=== PATIENT | female | born 1945 | race Caucasian/White ===

== ENCOUNTER 2023-10-07 04:08 | Inpatient (IN) | payer MEDICARE ==
[~2023-10-07] VITALS: Ht 170.2 cm; Wt 110.0 kg
[2023-10-07] VITALS (51 sets, daily range): BP systolic 96–178; BP diastolic 60–117
[~2023-10-07 04:08] MED LIST: Norco 5-325 Ta1 EACH PO
--- NOTE | 2023-10-07 05:00 | NUR ---
ADMISSION DIRECT ADMIT FROM [facility]. REPORT RECIEVED FROM [facility] IN [facility], AND PARAMEDICS UPON ARRIVAL. PER REPORT PATIENT TESTED POS FOR COVID 1 MONTH AGO WELL IN ER PRIOR TO ARRIVAL TO [facility]. PATIENT PLACED IN ISOLATION, COVID SWAB COLLECTED. LAB AT BEDSIDE DRAWING RAINBOW PER PHONE ORDERS FROM DR. REYNOLDS. PATIENT IS ALERT, ANSWERING QUESTIONS APPROPRIATLEY. PATIENT HAS Hx CVA "25 YEARS AGO", SOME GARBLED SPEECH BUT OTHERWISE SPEAKING APPROPRIATELY. PER CONCESSION ATTENDANT REPORT PATIENT HAS RIDE SIDED DEFECITS. PATIENT ABLE TO MOVE ALL EXTREMITIES BUT IS GENERALLY WEAK D/T CURRENT STATE. PATIENT HYPERTENSIVE, TACHYCARDIC AND TACHYPNEIC ON ARRIVAL. PATIENT WITH NGT IN PLACE, PLACED BY [facility], DARK LIQUID IN TUBE. PATIENT HOOKED UP TO LIS PER TELEPHONE ORDERS FROM HOSPITALIST. PATIENT ON 3L NC WITH SPO2 >95%, PATIENT WEARS 2L NC BASELINE. LUNG SOUNDS WITH FINE WHEEZES AND COARSE T/O. PATIENT STATES SHE HAD A FALL RECENTLY AT HOME AND THAT SHE USES A WALKER/SCOOTER BASELINE, SOME BRUISING IN DIFFERENT STAGES OF HEALING NOTED. NO OTHER OPEN WOUNDS NOTED. ATTENDS IN PLACE, C/D/I. AWAITING FURTHER ORDER FROM HOSPITALIST AND GENERAL SURGEON. NPO AT THIS TIME. ORIENTED TO ROOM AND CALL LIGHT SYSTEM.
[2023-10-07 05:26] LABS: Hematocrit 36.4 % (33.0-51.0); Hemoglobin 12.1 g/dL (11.5-16.0); Mean Corpuscular HGB 30.8 pg (26.0-34.0); Mean Corpuscular HGB Conc 33.2 g/dL (31.5-36.5); Mean Corpuscular Volume 93 fL (80-100); Mean Platelet Volume 10.6 fL (9.1-12.4); Platelet Count 297 K/mm3 (150-400); RDW Coefficient Variation 15.1 % (11.7-14.2); RDW Standard Deviation 51.5 fL (35.1-46.3); Red Blood Cell Count 3.93 M/mm3 (3.80-5.20); White Blood Cell Count 18.49 K/mm3 (4.00-11.30)
[2023-10-07 05:42] LABS: Base Excess Venous 2.2 mmol/L; International Normalized Ratio 1.24; PCO2 Venous 44.6 mmHg (38-42); Prothrombin Time Results 12.9 Sec (9.7-11.5); pH Blood Venous 7.39 (7.34-7.37)
[2023-10-07 05:44] LABS: BAND PERCENT MAN 23 % (0-8); BASOPHILS PERCENT MAN 0 % (0-2); EOSINOPHILS PERCENT MAN 0 % (0-6); LYMPHOCYTES ABSOLUTE MAN 1.29 K/mm3 (0.84-5.20); LYMPHOCYTES PERCENT MAN 7 % (21-46); MONOCYTES ABSOLUTE MAN 1.84 K/mm3 (0.16-1.47); MONOCYTES PERCENT MAN 10 % (4-13); NEUTROPHILS ABSOLUTE MAN 15.34 K/mm3 (1.96-9.15); SEG NEUTROPHILS PERCENT MAN 60 % (41-73); TOTAL CELLS COUNTED 100
[2023-10-07 05:54] LABS: Magnesium, Blood 2.1 mg/dL (1.6-2.4); Thyroid Stimulating Hormone 1.33 uIU/mL (0.360-4.800)
[2023-10-07 05:55] LABS: Albumin, Blood 2.8 g/dL (3.4-5.0); Albumin/Globulin Ratio 0.8 (0.8-1.8); Bun/Creatinine Ratio 30.8 (12.0-20.0); Calcium, Blood 9.1 mg/dL (8.5-10.1); Creatinine, Blood 0.91 mg/dL (0.40-1.00); Globulin, Blood 3.7 g/dL (2.2-4.0); Phosphorus, Blood 3.4 mg/dL (2.5-4.9); Potassium, Blood 3.8 mmol/L (3.5-5.5); Total Protein, Blood 6.5 g/dL (6.4-8.2)
[2023-10-07 07:05] LABS: Adenovirus Not Detected (NOT DETECT); Bordetella pertussis Not Detected (NOT DETECT); Chlamydophila pneumoniae Not Detected (NOT DETECT); Coronavirus 229E Not Detected (NOT DETECT); Coronavirus HKU1 Not Detected (NOT DETECT); Coronavirus NL63 Not Detected (NOT DETECT); Coronavirus OC43 Not Detected (NOT DETECT); Human Metapneumovirus Not Detected (NOT DETECT); Human Rhinovirus/Enterovirus Not Detected (NOT DETECT); Influenza A/2009-H1 Not Detected (NOT DETECT); Influenza A/H1 Not Detected (NOT DETECT); Influenza A/H3 Not Detected (NOT DETECT); Influenza B Not Detected (NOT DETECT); Mycoplasma pneumoniae Not Detected (NOT DETECT); Parainfluenza Virus 1 Not Detected (NOT DETECT); Parainfluenza Virus 2 Not Detected (NOT DETECT); Parainfluenza Virus 3 Not Detected (NOT DETECT); Parainfluenza Virus 4 Not Detected (NOT DETECT); Respiratory Syncytial Virus Not Detected (NOT DETECT); SARS-Cov-2 (COVID-19), BioFire Not Detected (NOT DETECT)
--- NOTE | 2023-10-07 08:00 | NUR ---
Received report from Noc RN. Dr Pereira leaving room and he stated will be going to surgery. Anesthesia enteing room and asked for breathing treatment and Nelia RT came to do it. They also requested better IV access and placed 18/10 Powerglide in SHELIA and patient tolerated well. She has 22ga RW and 20ga RLFA. Her speech is garbled but when speaking slow is mostly understandable. She is better at yes no questions. Her breathing is coarse and wheezy and states SOB with any movement. Called and let him know she was going to surgery
--- NOTE | 2023-10-07 10:45 | NUR ---
ASSUMPTION OF CARE PT ARRIVED TO ICU VIA ICU BED FROM OR. BEDSIDE REPORT RECEIVED FROM OR NURSE. PT INTUBATED, NO SEDATION, NOT RESPONDING TO STIMULI. REMI RT SETTING UP VENTILATOR. LS COARSE. OGT SETUP TO LIS WITH BROWN SECRETIONS. ABDOMINAL INCISION WITH KAMLESH IN PLACE, DRESSING C/D. HOLGUIN CATH PATENT, DRAINING MAGNUS URINE. POWERGLIDE TO SHELIA WITH 1L LR ALMOST COMPLETE.
[2023-10-07 11:02] LABS: Hematocrit 35.7 % (33.0-51.0); Hemoglobin 11.7 g/dL (11.5-16.0); Mean Corpuscular HGB 30.5 pg (26.0-34.0); Mean Corpuscular HGB Conc 32.8 g/dL (31.5-36.5); Mean Corpuscular Volume 93 fL (80-100); Mean Platelet Volume 10.4 fL (9.1-12.4); Platelet Count 292 K/mm3 (150-400); RDW Standard Deviation 51.1 fL (35.1-46.3); Red Blood Cell Count 3.83 M/mm3 (3.80-5.20); White Blood Cell Count 13.53 K/mm3 (4.00-11.30)
[2023-10-07 11:18] LABS: Albumin, Blood 2.4 g/dL (3.4-5.0); Albumin/Globulin Ratio 0.7 (0.8-1.8); Bilirubin, Total 1.1 mg/dL (0.1-1.0); Bun/Creatinine Ratio 28.2 (12.0-20.0); Calcium, Blood 8.8 mg/dL (8.5-10.1); Creatinine, Blood 1.03 mg/dL (0.40-1.00); Globulin, Blood 3.6 g/dL (2.2-4.0); Phosphorus, Blood 4.3 mg/dL (2.5-4.9); Potassium, Blood 3.9 mmol/L (3.5-5.5)
[2023-10-07 11:27] LABS: BAND PERCENT MAN 11 % (0-8); BASOPHILS PERCENT MAN 0 % (0-2); EOSINOPHILS PERCENT MAN 0 % (0-6); LYMPHOCYTES ABSOLUTE MAN 1.21 K/mm3 (0.84-5.20); LYMPHOCYTES PERCENT MAN 9 % (21-46); MONOCYTES ABSOLUTE MAN 1.21 K/mm3 (0.16-1.47); MONOCYTES PERCENT MAN 9 % (4-13); NEUTROPHILS ABSOLUTE MAN 11.09 K/mm3 (1.96-9.15); SEG NEUTROPHILS PERCENT MAN 71 % (41-73); TOTAL CELLS COUNTED 100
--- NOTE | 2023-10-07 18:56 | NUR ---
SHIFT SUMMARY PT EXTUBATED THIS AFTERNOON TO 4L VIA NC c SATS >90%. ALERT AND ORIENTED TO PERSON, PLACE, AND EVENT. ABLE TO STATE S/O NAME WITH SLURRED SPEECH, NORMAL AT BASELINE, FOLLOWING COMMANDS. PT DENIES ABDOMINAL PAIN, KAMLESH TO ABD WITHOUT BLEEDING. NGT TO LIS WITH BROWN OUTPUT. HOLGUIN CATH PATENT, DRAINING YELLOW URINE.
--- NOTE | 2023-10-07 21:10 | NUR ---
ASSUMED CARE AT 1900 PATIENT IS ALERT AND ORIENTED X SELF AND FOLLOWING COMMANDS, ABLE TO STATE YEAR BUT NOR MONTH OR WHERE SHE IS. NEEDS CONSTANT REDIRECTION. PULLED NG TUBE OUT AT START OF SHIFT, STATED SHE WOULD PULL IT OUT AGAIN IF REPLACED. DR. CASON NOTIFIED, OK TO LEAVE OUT FOR NOW, REPLACE IF PATIENT BECOMES NAUSEOUS. 02 SATS 94% ON 4L VIA NC, SOME EXP WHEEZE, RT NOTIFIED AND PATIENT RECIEVING BREATHING TREATMENT. WEAK COUGH AND NO SPUTUM AT THIS TIME. HR A.FIB 110-120s. HUMAIRA STABLE TO HYPERTENSIVE, WILL MEDICATED PER EMAR PRN. HOLGUIN PATENT AND DRAINING TO GRAVITY. MIDLINE DRESSING WITH KAMLESH C/D/I. PATIENT REPOSITIONED AND ORAL CARE DONE. CALL LIGHT IN REACH
[2023-10-07 21:26] LABS: Source, Urine Foley catheter
[2023-10-07 21:54] LABS: Bilirubin, Urine Neg (Neg); Blood, Urine 5+ (Neg); Glucose Qualitative, Urine Neg (Neg); Ketones, Urine Neg (Neg); Leukocyte Esterase, Urine Neg (Neg); Nitrite, Urine Neg (Neg); Protein, Urine 3+ (Neg); Urobilinogen, Urine 1+ (Normal)
[2023-10-07 22:04] LABS: Appearance, Urine Clear (Clear); Color, Urine Yellow (P-Yellow)
[2023-10-07 22:05] LABS: Bacteria Few /hpf; Squamous Epithelial Cells Not Seen /hpf (Few); White Blood Cells, Urine 0-2 /hpf (0-5)
[2023-10-08] VITALS (30 sets, daily range): BP systolic 130–180; BP diastolic 76–111
--- NOTE | 2023-10-08 01:44 | NUR ---
PATIENT STATED SHE WAS STARTING TO FEEL NAUSEOUS NG REPLACED, BROWN BILE FROM NG TUBE, PLACED TO LIS.
[2023-10-08 03:55] LABS: Hematocrit 34.7 % (33.0-51.0); Hemoglobin 11.4 g/dL (11.5-16.0); Mean Corpuscular HGB 30.2 pg (26.0-34.0); Mean Corpuscular HGB Conc 32.9 g/dL (31.5-36.5); Mean Corpuscular Volume 92 fL (80-100); Mean Platelet Volume 10.7 fL (9.1-12.4); Platelet Count 291 K/mm3 (150-400); RDW Standard Deviation 50.3 fL (35.1-46.3); Red Blood Cell Count 3.77 M/mm3 (3.80-5.20); White Blood Cell Count 14.42 K/mm3 (4.00-11.30)
[2023-10-08 04:19] LABS: Albumin, Blood 2.3 g/dL (3.4-5.0); Albumin/Globulin Ratio 0.6 (0.8-1.8); Bilirubin, Total 0.7 mg/dL (0.1-1.0); Creatinine, Blood 1.03 mg/dL (0.40-1.00); Magnesium, Blood 2.3 mg/dL (1.6-2.4); Potassium, Blood 3.7 mmol/L (3.5-5.5); Total Protein, Blood 6.3 g/dL (6.4-8.2)
[2023-10-08 04:47] LABS: BAND PERCENT MAN 4 % (0-8); BASOPHILS PERCENT MAN 0 % (0-2); EOSINOPHILS PERCENT MAN 0 % (0-6); LYMPHOCYTES ABSOLUTE MAN 0.86 K/mm3 (0.84-5.20); LYMPHOCYTES PERCENT MAN 6 % (21-46); MONOCYTES ABSOLUTE MAN 0.72 K/mm3 (0.16-1.47); MONOCYTES PERCENT MAN 5 % (4-13); NEUTROPHILS ABSOLUTE MAN 12.83 K/mm3 (1.96-9.15); SEG NEUTROPHILS PERCENT MAN 85 % (41-73); TOTAL CELLS COUNTED 100
--- NOTE | 2023-10-08 06:15 | NUR ---
SHIFT SUMMARY PATIENT REMAINS ALERT AND ORIENTED X SELF, YEAR, AND FOLLOWS COMMANDS. UNABLE TO STATE MONTH AND WHERE SHE IS, NEEDS CONSTANT REDIRECTION. 02 SATS 95% ON 4L NC. DID WEAR BIPAP FOR APPROX 3-4 HOURS THROUGH THE NIGHT, WORK OF BREATHING AND RR HAD INCREASED. RR NOW 20s ON NC. HR A.FIB 110-120s. BP STABLE THROUGH THE NIGHT, DENIES CP/PRESSURE. HOLGUIN PATENT AND DRAINING MAGNUS URINE TO GRAVITY. NG REMAINS IN PLACE TO MACIEJ GUTIÉRREZ BILE. MIDLINE DRESSING WITH KAMLESH, C/D/I. MEDICATED FOR ABDOMINAL PAIN. REPOSITIONED Q2 HOURS. CALL LIGHT IN REACH.
--- NOTE | 2023-10-08 17:18 | NUR ---
SHIFT SUMMARY/TRANSFER TO SURGICAL PT HAS DONE WELL THIS SHIFT. PT HAS SLEPT OFF AND ON THROUGHOUT THE SHIFT. WHEN AWAKE PT IS ALERT WITH PERIODS OF FORGETFULNESS. PT SPEECH IS MUMBLED, BUT PT ANSWERS SIMPLE QUESTIONS APPROPRIATELY. PT TAKING SIPS OF WATER THIS SHIFT. NGT REMAINS IN PLACE TO LIS. OK FOR NGT TO BE DC'D PER DR KNIGHT THIS EVENING. PG TO SHELIA C/D/I. HOLGUIN REMAINS IN PLACE WITH YELLOW URINE OUTPUT NOTED. VITAL SIGNS STABLE, PT REMAINS ON 3L O2 NC. MIDLINE KAMLESH REMAINS C/D/I. REPORT CALLED TO SOAP INSPECTOR, ALL QUESTIONS ANSWERED. PT TO BE TAKEN TO ROOM 224 AT THIS TIME.
--- NOTE | 2023-10-08 18:26 | NUR ---
PATIENT A TRANSFER FROM ICU @ ABOUT 1730. NG TUBE IN PLACE, DR KNIGHT HAS ORDER PLACED TO DC NG. PATIENT RESTING AT THIS TIME. HOLGUIN IN PLACE AND SECURE TO LEG. DRAINING CLEAR YELLOW URINE TO GRAVITY. KAMLESH DRESSING ON MIDLINE INCISION, WNL AND COMPRESSED. BED ALARM IS ON FOR SAFETY. CALL LIGHT IN REACH OF PATIENT AND VSS. PATIENT IS AOX4 WITH SOME FORGETFULNESS. WILL REPORT TO NIGHT RN.
[2023-10-09 03:41] VITALS: BP 147/91
--- NOTE | 2023-10-09 04:32 | NUR ---
SHIFT SUMMARY POD 3 EX LAP, SMALL BOWEL RESECTION PT ABLE TO REST DURING THE NIGHT. PAIN MANAGED PER EMAR. ATTEMPTED TO REPOSTION PT, PT REFUSED. STATES IT HURTS HER BACK. KAMLESH DRESSING TO MIDLINE INCISION C/D/I AND COMPRESSED.PT OLERTING SMALL AMOUNTS OF WATER AND ICE. PT CALLING OUT WANTING MORE WATER AND ICE. PT EDUCATED ON HOW SHE CAN ONLY HAVE SMALL AMOUNTS AT TIMES. NG TUBE TO BE TAKEN OUT THIS MORNING. PT BECOMES MORE CONFUSED THE NIGHT GOES ON. NO OTHER CONCERN AT THIS TIME. CALL LIGHT WITHIN REACH
[2023-10-09 06:33] LABS: BASOPHILS ABSOLUTE AUTO 0.02 K/mm3 (0.00-0.23); BASOPHILS PERCENT AUTO 0 % (0-2); EOSINOPHILS ABSOLUTE AUTO 0.03 K/mm3 (0.00-0.68); EOSINOPHILS PERCENT AUTO 0 % (0-6); Hemoglobin 9.9 g/dL (11.5-16.0); IMMATURE GRAN ABSOLUTE AUTO 0.09 K/mm3 (0.00-0.10); IMMATURE GRAN PERCENT AUTO 1 % (0-1); LYMPHOCYTES ABSOLUTE AUTO 1.49 K/mm3 (0.84-5.20); LYMPHOCYTES PERCENT AUTO 11 % (21-46); MONOCYTES PERCENT AUTO 7 % (4-13); Mean Corpuscular HGB 30.3 pg (26.0-34.0); Mean Corpuscular HGB Conc 31.9 g/dL (31.5-36.5); Mean Corpuscular Volume 95 fL (80-100); Mean Platelet Volume 10.3 fL (9.1-12.4); NEUTROPHILS ABSOLUTE AUTO 11.17 K/mm3 (1.96-9.15); NEUTROPHILS PERCENT AUTO 82 % (41-73); NRBC ABSOLUTE 0.02 K/mm3 (0.00-0.02); NRBC Auto 0.1 /100 WBC (0.0-0.2); Platelet Count 299 K/mm3 (150-400); RDW Coefficient Variation 15.2 % (11.7-14.2); RDW Standard Deviation 52.8 fL (35.1-46.3); Red Blood Cell Count 3.27 M/mm3 (3.80-5.20)
[2023-10-09 06:52] LABS: Bun/Creatinine Ratio 33.3 (12.0-20.0); Calcium, Blood 8.9 mg/dL (8.5-10.1); Creatinine, Blood 0.87 mg/dL (0.40-1.00); Potassium, Blood 3.7 mmol/L (3.5-5.5)
[2023-10-09 07:35] VITALS: BP 158/90
--- NOTE | 2023-10-09 09:00 | NUR ---
PT PLEASANT ANXIOUS, A/O X3, BUT SOME OCC FORGETFULLNESS. STATES SOME PAIN IN ABD THIS AM. ICE PACK PER DR Rusty BRADFORD DRAIN IS CLEAN AND DRY, HOOKED TO KAMLESH VACUUM DRAIN. NO DRAINAGE SEEN. H/R IRREG, HX OF AFIB, PRESENTLY PER TELE AFIB WITH PVC'S 104-112. NO MURMUR NOTED. NO EDEMA NOTED. LUNGS CLEAR, RESP EASY, UNLABORED. ON 3L O2. BT X4 VOIDS HOLGUIN CATH YELLOW FLUID IN BAG. BED IN LOW POSITION, CALL LITE IN REACH. CALLS MULTIPLE TIMES, APPEARS NOT REMEMBERED JUST CALLED. REORIENTS EASILLY.
[2023-10-09 14:43] VITALS: BP 164/75
--- NOTE | 2023-10-09 14:51 | NUR ---
in. he to order meds.
[2023-10-09 16:31] VITALS: BP 155/91
--- NOTE | 2023-10-09 17:31 | NUR ---
PT PLEASANT TODAY. NO BLEEDING OR DISCHARGE NOTED AT ABD SITE. PAIN MANAGED WITH [facility]AIL PAIN MED. IN FROM [facility] TODAY. REFERRED TO CARE MANAGEMENT WHEN SPOUSE IN ROOM. PT WAS ABLE TO TRANSFER FROM BED TO CHAIR AND BACK TO BED LATER THIS AFT. NO NEW CONCERNS NOTED. BED IN LOW POSITION, CALL LITE IN REACH, CALLS APPROP
[2023-10-09 19:47] VITALS: BP 154/87
[2023-10-10 03:59] VITALS: BP 140/73
[2023-10-10 06:31] LABS: BASOPHILS ABSOLUTE AUTO 0.03 K/mm3 (0.00-0.23); BASOPHILS PERCENT AUTO 0 % (0-2); EOSINOPHILS ABSOLUTE AUTO 0.29 K/mm3 (0.00-0.68); EOSINOPHILS PERCENT AUTO 3 % (0-6); Hematocrit 30.8 % (33.0-51.0); Hemoglobin 9.6 g/dL (11.5-16.0); IMMATURE GRAN ABSOLUTE AUTO 0.21 K/mm3 (0.00-0.10); IMMATURE GRAN PERCENT AUTO 2 % (0-1); LYMPHOCYTES ABSOLUTE AUTO 2.14 K/mm3 (0.84-5.20); LYMPHOCYTES PERCENT AUTO 20 % (21-46); MONOCYTES ABSOLUTE AUTO 0.95 K/mm3 (0.16-1.47); MONOCYTES PERCENT AUTO 9 % (4-13); Mean Corpuscular HGB 29.6 pg (26.0-34.0); Mean Corpuscular HGB Conc 31.2 g/dL (31.5-36.5); Mean Corpuscular Volume 95 fL (80-100); Mean Platelet Volume 9.9 fL (9.1-12.4); NEUTROPHILS ABSOLUTE AUTO 7.35 K/mm3 (1.96-9.15); NEUTROPHILS PERCENT AUTO 67 % (41-73); NRBC ABSOLUTE 0.02 K/mm3 (0.00-0.02); NRBC Auto 0.2 /100 WBC (0.0-0.2); Platelet Count 285 K/mm3 (150-400); RDW Coefficient Variation 15.3 % (11.7-14.2); RDW Standard Deviation 53.1 fL (35.1-46.3); Red Blood Cell Count 3.24 M/mm3 (3.80-5.20); White Blood Cell Count 10.97 K/mm3 (4.00-11.30)
--- NOTE | 2023-10-10 06:35 | NUR ---
SHIFT SUMMARY PT IS POD#3 FOR A SMALL BOWEL RESECTION W/TIFFANY. PT DID WELL OVERNIGHT, RESTING FOR THE MAJORITY THROUGHOUT THE SHIFT. PT COMPLAINED OF SOME PAIN DURING THE NIGHT, BUT MOSTLY D/T HER BACK PAIN OR A HEADACHE. VITAL SIGNS HAVE BEEN STABLE WITH NO ACUTE EVENTS OCCURRING OVERNIGHT. BED IS IN LOWEST POSITION, CALL LIGHT IS WITHIN REACH.
[2023-10-10 07:18] LABS: Bun/Creatinine Ratio 29.1 (12.0-20.0); Calcium, Blood 8.8 mg/dL (8.5-10.1); Creatinine, Blood 0.79 mg/dL (0.40-1.00); Potassium, Blood 3.8 mmol/L (3.5-5.5)
[2023-10-10 07:20] VITALS: BP 134/77
[2023-10-10 15:09] VITALS: BP 150/81
--- NOTE | 2023-10-10 17:41 | NUR ---
SHIFT SUMMARY PT POD #3 FOR SMALL BOWEL RESECTION WITH LYSIS OF ADHESIONS. KAMLESH TO MIDLINE, CDI. PT WORKED WITH PT AND CAN STAND PIVOT WITH 2 ASSIST. PT Q2 TURN AND SOME WEAKNESS NOTED ON HER RIGHT SIDE, WHICH IS HER BASELINE. NO C/O ABD PAIN BUT HAS SOME PAIN IN HER R HIP AND C/O HEADACHE. VSS.
[2023-10-10 19:58] VITALS: BP 142/77
[2023-10-10 23:19] VITALS: BP 135/70
--- NOTE | 2023-10-10 23:41 | NUR ---
CHEST PAIN PT COMPLAINING OF CHEST PAIN THAT STARTED AROUND 2315. PT REPORTS THAT PAIN IS IN HER LEFT CHEST. RATES PAIN 8/10. VITALS OBTAINED, RESP ARE SLIGHLY LABORED BUT SATS WNL, BP AND HR STABLE. PER RN HYPERBARIC HR AFIB 74, PT HAS BEEN IN AFIB SINCE ADMISSION, AND HAS HX OF AFIB. PER RN HYPERBARIC PT HAD BRIEF EPISODES OF BRADYCARDIA, HR DROPPED DOWN TO THE TO 43, AND 48 WHILE RESTING, RN HYPERBARIC REPORTS THAT THE ESPISODES OF BRADYCARDIA STARTED AROUND 1600 TODAY 10/10/23. PT DOES NOT REPORT NAUSEA OR VOMITTING. SKIN IS WARM AND DRY. PT IS A LITTLE BIT CONFUSED, SPEECH IS NONSENSICAL AT TIMES. PT SHE IS ABLE TO TELL ME WHERE SHE IS, THE YEAR, AND PRESIDENT WHEN ASKED. MERNA CUNNINGHAM NP CALLED AND NOTIFIED THAT PT IS REPORTING CHEST PAIN, AND OF INCREASED CONFUSION. SERIAL TROPONIN'S ORDERED. NO ADDITIONAL ORDERS AT THIS TIME. CINDER DUMP CRANE OPERATORJAYLON CASTELLANOS ALSO AWARE OF CHEST PAIN.
--- NOTE | 2023-10-11 01:22 | NUR ---
CRITICAL TROPONIN CRITICAL TROPONIN RESULT CALLED TO THIS RN AT 0113. TROPONIN 261. MERGERS AND ACQUISITIONS ASSOCIATE JASMIN OWENS NOTIFIED OF LAB RESULT. DR. REYNOLDS CALLED AND NOTIFIED OF CRITICAL TROPONIN OF 261, AND OF PT PREVIOUS REPORTS OF CHEST PAIN. HE WAS ALSO NOTIFIED OF MY CONVERSATION WITH MERNA JEAN-BAPTISTE CHECK EXAMINER REGARDING PT CHEST PAIN, AND THE ORDERS I WAS GIVEN BY MERNA. PT DENIES CHEST PAIN AT THIS TIME. RESP E/U, SKIN WARM AND DRY. NO N/V. NO ACUTE CHANGES ON TELE. REPEAT TROPONIN TO BE PERFORMED AT 0200. HE STATES IF TROPONIN CONTINUES TO INCREASE WITH 0200 LABS TO ORDER A REPEAT LAB FOR 0500. IF THE 0200 RESULT DECREASES NO ADDITIONAL LABS ARE NEEDED. NO OTHER ORDERS GIVEN AT THIS TIME.
[2023-10-11 02:50] LABS: Bun/Creatinine Ratio 27.1 (12.0-20.0); Calcium, Blood 8.6 mg/dL (8.5-10.1); Creatinine, Blood 0.74 mg/dL (0.40-1.00); Potassium, Blood 3.1 mmol/L (3.5-5.5)
[2023-10-11 03:02] LABS: BASOPHILS ABSOLUTE AUTO 0.07 K/mm3 (0.00-0.23); BASOPHILS PERCENT AUTO 1 % (0-2); EOSINOPHILS ABSOLUTE AUTO 0.52 K/mm3 (0.00-0.68); EOSINOPHILS PERCENT AUTO 5 % (0-6); Hematocrit 33.1 % (33.0-51.0); Hemoglobin 10.4 g/dL (11.5-16.0); IMMATURE GRAN ABSOLUTE AUTO 0.55 K/mm3 (0.00-0.10); IMMATURE GRAN PERCENT AUTO 5 % (0-1); LYMPHOCYTES ABSOLUTE AUTO 2.76 K/mm3 (0.84-5.20); LYMPHOCYTES PERCENT AUTO 24 % (21-46); MONOCYTES ABSOLUTE AUTO 0.97 K/mm3 (0.16-1.47); MONOCYTES PERCENT AUTO 8 % (4-13); Mean Corpuscular HGB 30.4 pg (26.0-34.0); Mean Corpuscular HGB Conc 31.4 g/dL (31.5-36.5); Mean Corpuscular Volume 97 fL (80-100); Mean Platelet Volume 10.3 fL (9.1-12.4); NEUTROPHILS ABSOLUTE AUTO 6.79 K/mm3 (1.96-9.15); NEUTROPHILS PERCENT AUTO 58 % (41-73); Platelet Count 314 K/mm3 (150-400); RDW Coefficient Variation 15.5 % (11.7-14.2); RDW Standard Deviation 54.5 fL (35.1-46.3); Red Blood Cell Count 3.42 M/mm3 (3.80-5.20); White Blood Cell Count 11.66 K/mm3 (4.00-11.30)
[2023-10-11 03:47] VITALS: BP 132/61
--- NOTE | 2023-10-11 05:26 | NUR ---
SHIFT SUMMARY PT HAS SLEPT OFF AND ON. PT HAS PERIODS OF ANXIETY, PRESSES CALL LIGHT FREQUENTLY. A/OX4 ANSWERS THE QUESTIONS I ASKS APPROPRIATELY. HOWEVER, SPEECH IS NONSENSICAL AT TIMES, MAKES STATEMENTS THAT ARE DIFFICULT TO UNDERSTAND. PT REPORTED CHEST PAIN AROUND 2300 YESTERDAY NIGHT. CHEST PAIN ADRESSED WITH PROVIDERS. SERIAL TROPONIN'S ORDERED. TROPONIN'S ARE CRITICAL AND PROVIDER MADE AWARE. TROPONINS ARE TRENDING DOWN SLIGHLY THIS AM. PT REPORTED THAT CHEST PAIN HAD RESOLVED SHORTLY AFTER REPORTING AROUND 2300. VITALS ARE STABLE. RESP E/U. SKIN WARM AND DRY. PT HAD LARGE BM THIS SHIFT. MIDLINE INCISION DRESSING C/D/I. KAMLESH COMPRESSED. BED IN LOWEST POSITION, CALL LIGHT WITHIN REACH.
[2023-10-11 07:08] VITALS: BP 156/71
[2023-10-11 12:29] VITALS: BP 133/75
[2023-10-11 14:59] VITALS: BP 145/80
--- NOTE | 2023-10-11 18:37 | NUR ---
SHIFT SUMMARY POD4 EXP LAP SBRESECT TIFFANY, KAMLESH WNL. A&O3/FORGETFUL/PLEASANT & COOPERATIVE WITH CARE, ALINE REG DIET, INCONTINENT BOWEL/BLADDER: VOIDING/PUREWICK, BMs SOFT/ATTENDS ON, VSS/3L/TELE AFIB 60s, STAND PIVOT TRANSFER WITH FWW & 2 PP MAX ASSIST/UP TO CHAIR T/O SHIFT. DENIES PAIN/NEED FOR MED. WILL REPORT TO ONCOMING NOC RN.
[2023-10-11 19:35] VITALS: BP 152/75
[2023-10-12 02:46] VITALS: BP 143/80
[2023-10-12 06:24] LABS: Hematocrit 32.6 % (33.0-51.0); Hemoglobin 10.3 g/dL (11.5-16.0); Mean Corpuscular HGB 29.9 pg (26.0-34.0); Mean Corpuscular HGB Conc 31.6 g/dL (31.5-36.5); Mean Corpuscular Volume 95 fL (80-100); Mean Platelet Volume 9.7 fL (9.1-12.4); Platelet Count 315 K/mm3 (150-400); RDW Coefficient Variation 15.2 % (11.7-14.2); Red Blood Cell Count 3.44 M/mm3 (3.80-5.20)
--- NOTE | 2023-10-12 06:27 | NUR ---
SUMMARY- PT DENIES ABD DISCOMFORT. MIDLINE DRESSING IN C/D/I. KAMLESH IS WORKING WELL. PT CONTINUES TO HAVE A PUREWICK DEVICE THAT IS WORKING WELL. PT DID BECOME MORE CONFUSED THROUGHOUT THE NIGHT. PT WAS AWAKE FOR MOST OF SHIFT. PT IS NOW SLEEPING THIS AM. PT HAS BEEN DRINKING PO FLUIDS. CALL LIGHT IN REACH AND BED ALARM ON.
[2023-10-12 06:44] LABS: Bun/Creatinine Ratio 25.4 (12.0-20.0); Calcium, Blood 8.8 mg/dL (8.5-10.1); Creatinine, Blood 0.55 mg/dL (0.40-1.00); Potassium, Blood 3.5 mmol/L (3.5-5.5)
[2023-10-12 07:11] LABS: BASOPHILS PERCENT MAN 0 % (0-2); EOSINOPHILS ABSOLUTE MAN 0.36 K/mm3 (0.00-0.68); EOSINOPHILS PERCENT MAN 3 % (0-6); LYMPHOCYTES ABSOLUTE MAN 5.04 K/mm3 (0.84-5.20); LYMPHOCYTES PERCENT MAN 42 % (21-46); METAMYELOCYTE ABSOLUTE MAN 0.12 K/mm3 (0.00-0.00); METAMYELOCYTE PERCENT MAN 1 % (0-0); MONOCYTES ABSOLUTE MAN 0.84 K/mm3 (0.16-1.47); MONOCYTES PERCENT MAN 7 % (4-13); NEUTROPHILS ABSOLUTE MAN 5.64 K/mm3 (1.96-9.15); SEG NEUTROPHILS PERCENT MAN 47 % (41-73); TOTAL CELLS COUNTED 100
[2023-10-12 08:13] VITALS: BP 149/83
[2023-10-12 14:42] VITALS: BP 162/81
[2023-10-12 16:37] VITALS: BP 140/70
[2023-10-12 17:10] LABS: Base Excess Venous 10.3 mmol/L; Bicarbonate Venous 31.5 mmol/L (24.0-30.0); PCO2 Venous 60.2 mmHg (38-42); pH Blood Venous 7.38 (7.34-7.37)
--- NOTE | 2023-10-12 17:15 | NUR ---
TELEPHONE CALL TO DR HART R/T BLOOD GASES RESULTS HIGH. STATES TO MAKE SURE PT WEARS BIPAP.
--- NOTE | 2023-10-12 17:18 | NUR ---
PT REFUSING TO WEAR BIPAP. IS CURRENTLY WEARING 4LNC HUMIDIFIED WITH OXYGEN SATS >95% AND HEART RATE 65 BPM.
--- NOTE | 2023-10-12 17:47 | NUR ---
SHIFT SUMMARY POD5 SB RESECT, KAMLESH WNL/CDI. A&O3/SLEEPY TODAY BUT WAKES EASILY, REFUSING BIPAP/WEARING 4LNC HUMIDIFIED, BIOX ON O2 SATS >95%/HR CURRENTLY 65 BPM, TELE CURRENTLY AFIB 59-64BPM, ALINE PO REG DIET/MEDS WITH APPLESAUCE, VOIDING PUREWICK IN PLACE TO SUX, REPOSITIONED, PAIN MANAGED WITH TYLENOL. WILL REPORT TO ONCOMING NOC RN.
[2023-10-12 19:32] VITALS: BP 100/63
[2023-10-13 04:19] VITALS: BP 133/64
[2023-10-13 04:32] LABS: BASOPHILS ABSOLUTE AUTO 0.04 K/mm3 (0.00-0.23); BASOPHILS PERCENT AUTO 0 % (0-2); EOSINOPHILS ABSOLUTE AUTO 0.53 K/mm3 (0.00-0.68); EOSINOPHILS PERCENT AUTO 5 % (0-6); Hematocrit 33.5 % (33.0-51.0); Hemoglobin 10.4 g/dL (11.5-16.0); IMMATURE GRAN ABSOLUTE AUTO 0.55 K/mm3 (0.00-0.10); IMMATURE GRAN PERCENT AUTO 5 % (0-1); LYMPHOCYTES ABSOLUTE AUTO 2.99 K/mm3 (0.84-5.20); LYMPHOCYTES PERCENT AUTO 27 % (21-46); MONOCYTES ABSOLUTE AUTO 0.95 K/mm3 (0.16-1.47); MONOCYTES PERCENT AUTO 9 % (4-13); Mean Corpuscular Volume 97 fL (80-100); Mean Platelet Volume 9.9 fL (9.1-12.4); NEUTROPHILS ABSOLUTE AUTO 5.99 K/mm3 (1.96-9.15); NEUTROPHILS PERCENT AUTO 54 % (41-73); Platelet Count 326 K/mm3 (150-400); RDW Coefficient Variation 15.1 % (11.7-14.2); RDW Standard Deviation 51.9 fL (35.1-46.3); Red Blood Cell Count 3.47 M/mm3 (3.80-5.20); White Blood Cell Count 11.05 K/mm3 (4.00-11.30)
[2023-10-13 04:59] LABS: Bun/Creatinine Ratio 19.7 (12.0-20.0); Calcium, Blood 8.6 mg/dL (8.5-10.1); Creatinine, Blood 0.76 mg/dL (0.40-1.00); Potassium, Blood 3.6 mmol/L (3.5-5.5)
--- NOTE | 2023-10-13 05:32 | NUR ---
SUMMARY- PT HAD NO ISSUES WITH CONFUSION THIS SHIFT. PT HAS BEEN WATCHING TV FOR MOST OF SHIFT. PT HAS BEEN PUTTING OUT CLEAR LIGHT YELLOW URINE VIA [employer] DEVICE. NO TELE EVENTS REPORTED. PT REMAINS ON O2, REFUSES CPAP. PT DRINKING PO FLUIDS. DRESSING C/D/I. KAMLESH OPERATIONAL. PT REPOSITONED TOLERATED. BED ALARM ON FOR SAFETY.
[2023-10-13 07:21] VITALS: BP 121/60
[2023-10-13 14:30] VITALS: BP 104/47
--- NOTE | 2023-10-13 14:44 | NUR ---
ANSWERED CALL LIGHT AND ASKED FOR HOT TEA, LEMONADE, AND SOME CHEESE. CHECKED WITH NURSE TO ENSURE SHE COULD HAVE ALL AND GOT THOSE FOR HER. CURRENTLY WATCHING T.V. ENJOYING THOSE SNACKS AND HAS CALL LIGHT IN REACH.
--- NOTE | 2023-10-13 15:44 | NUR ---
ANSWERED CALL LIGHT AND SHE MENTIONED SHE FELT LIKE SHE WAS WET. WE CHECKED AND HER BRIEF AND UNDER JUAREZ PAD WAS WET. THE RESPIRATORY CARE TECHNICIAN AND I TOOK CARE OF IT. ADJUSTED HER IN BED AND HOOKED HER BACK UP TO HIS PULSE OX. SHE HAS THE CALL LIGHT IN REACH AND DOOR OPENED.
[2023-10-13 16:56] VITALS: BP 152/83
--- NOTE | 2023-10-13 16:59 | NUR ---
CHECKED IN ON PATIENT TO DO VITAL SIGNS AND SHE ASKED TO BE BOOSTED UP. SHE STATED HER BACK WAS HURTING SO WE BOOSTED HER AND PUT A PILLOW UNDER HER LEFT HIP. SHE ASKED FOR MORE TEA AND LEMONADE. LEFT HER CALL LIGHT IN REACH
--- NOTE | 2023-10-13 17:04 | NUR ---
CHECKED BACK IN WITH PATIENT TO SEE HOW HER BACK PAIN WAS THAT SHE STATED EARLIER HAVING. SHE SAID IT WAS BETTER AND I ASKED IF SHE'D LIKE ANYTHING FOR PAIN BUT SHE SAID IT WAS TOLERABLE. WE ELEVATED THE HEAD OF BED A LITTLE MORE AND SHE SAID SHE WAS IN A COMFORTABLE POSITION. HER CALL LIGHT AND BEDSIDE TABLE ARE WITHIN REACH.
--- NOTE | 2023-10-13 17:57 | NUR ---
SHIFT SUMMARY ROUNDED ON PT FREQUENLTY THROUGHOUT THE DAY AND SHE WAS PLESEANT. DID NOT HAVE ANY REPORTED NAUSEA AND VERY LIMITED PAIN. WE ADDRESSED PAIN EARLY IN THE MORNING WITH SOME PRN'S. SHE HAS BEEN RESTING MOST OF DAY WATCHING T.V. GOT HER BRIEF AND JUAREZ PAD CHANGED IT SOAKED THROUGH. ASKED FOR PEPPERMINT TEA AND LEMONADE CONSISTENTLY THROUGHOUT THE DAY. ASKED TO BE REPOSITIONED FOR MILD BACK PAIN AT TIMES. WE REPOSITIONED AND ASSESSED SHORTLY AFTER AND SHE STATED SHE DIDN'T NEED MEDICATIONS AND WAS FINE FOR THE MOMENT. HAD DINNER AND HAS BEEN RELAXING.
[2023-10-13 19:18] VITALS: BP 123/64
--- NOTE | 2023-10-13 20:06 | NUR ---
SHIFT SUMMARY PT HAS DONE WELL TODAY. WAS ABLE TO INCREASE MOBILITY. PAIN WELL CONTROLLED. WAITING FOR SNF PLACEMENT.
[2023-10-14 03:21] VITALS: BP 135/53
--- NOTE | 2023-10-14 05:35 | NUR ---
summary- PT HAD NO CONFUSION EPISODES. PT DRESSING C/D/I. KAMLESH OPERATIONAL. PT PUTTING OUT LIGHT YELLOW/ CLEAR URINE VIA PUREWICK. PT SPO2 > 92%. PT ONLY ISSUE THIS SHIFT HAS BEEN RIGHT HIP/ LOW BACK DISCOMFORT. DR REYNOLDS CALLED AND ORDERED CLIMAX FOR PT. PT RESPONDED WELL. PT HAS NOT SLEPT MUCH AND HAS BEEN DRINKING PO FLUIDS. CALL LIGHT IN REACH.
[2023-10-14 07:08] VITALS: BP 163/59
[2023-10-14 14:39] VITALS: BP 109/70
[2023-10-14 16:46] VITALS: BP 92/59
--- NOTE | 2023-10-14 18:48 | NUR ---
SHIFT SUMMARY PT HAS DONE WELL TODAY. PLEASANT BUT SAYS ODD THINGS OCCASIONALLY. UP TO CHIAR TODAY AFTER MUCH CONVINCING. DECLINED PAIN MEDS FROM ME.
[2023-10-14 19:17] VITALS: BP 107/63
[2023-10-15 04:38] VITALS: BP 111/69
--- NOTE | 2023-10-15 04:45 | NUR ---
SHIFT SUMMARY PT HAS RESTED T/O THE NIGHT, A/OX4 WITH NO CONFUSION T/O THE NIGHT. NO COMPLAINTS OF PAIN, SURGICAL SITE WNL. VITALS ARE STABLE. PLAN OF CARE REMAINS UNCHANGED.
[2023-10-15 07:45] VITALS: BP 135/67
[2023-10-15] MEDS ORDERED: Norco 5-325 Ta1 EACH PO (14:15)
[2023-10-15] MEDS ORDERED: CYCL10 PO (14:19)
[2023-10-15] MEDS ORDERED: METOPROLOL SUCC25 MG PO (14:20)
[2023-10-15] MEDS ORDERED: DULO30 PO (14:21)
[2023-10-15 14:51] VITALS: BP 125/73
[2023-10-15] MEDS ORDERED: Acetaminophen650 M1 PO (14:59)
[2023-10-15] MEDS ORDERED: FURO20 PO (15:00)
[2023-10-15] MEDS ORDERED: COLACE100 MG PO (15:00)
[2023-10-15] MEDS ORDERED: FAMO20 PO (15:00)
[2023-10-15] MEDS ORDERED: LISI5 PO (15:01)
[2023-10-15] MEDS ORDERED: [UNRECOGNIZED DRUG - CODE] PO (15:02)
[2023-10-15] MEDS ORDERED: DABI150C PO (15:02)
--- NOTE | 2023-10-15 15:37 | NUR ---
DISCHARGE NOTE: PATIENT WAS EDUCATED ON DISCHARGE INSTRUCTIONS. SHE VERBALIZED UNDERSTANDING OF INSTRUCTIONS AND HAD NO FURTHER QUESTIONS AT THIS TIME. PAIN IS MANAGED WITH PO TYLENOL. HER ABD MIDLINE INCISION WITH HENRY ARE C/D/I WITH MEDIPORE DRESSING PLACED PER PATIENT REQUEST. SHE IS TOLERATING HER REGULAR DIET WITH NO NAUSEA OR VOMITING. SHE IS VOIDING, PASSING GAS, AND IS HAVING BMS. SHE IS A SBA WITH FWW AND GAIT BELT. PATIENT IS DRESSED AND HAS PERSONAL ITEMS IN THE ROOM GATHERED. PATIENT IS WAITING FOR HER WHO IS COMING TO GET HER AROUND [id number] TO TAKE HER HOME.
[2023-10-15 16:07] VITALS: BP 135/73
--- NOTE | 2023-10-15 16:33 | NUR ---
patient was wheelchaired out to her husbands car to be taken home. all personal items in the room were taken with her to the car.
== END 2023-10-15 16:25 | disposition home health service (06) | DRG 329 ==
LOC: PCU 04:08 → ICUE 04:44 → SURS 04:44 → PCU 05:18 → ICUE 08:54 → SURS 10-08 17:33
PROVIDERS: Family Medicine; Internal Medicine Critical Care Medicine; Surgery; ADMIT Student in an Organized Health Care Education/Training Program
PROC: 0DB80ZZ Excision of Small Intestine, Open Approach (ICD-10-PCS; principal; 2023-10-07 08:00)
DX: K56.50 Intestinal adhesions [bands], unspecified as to partial versus complete obstruction (principal); J95.821 Acute postprocedural respiratory failure; K55.021 Focal (segmental) acute infarction of small intestine; D62 Acute posthemorrhagic anemia; I13.0 Hypertensive heart and chronic kidney disease with heart failure and stage 1 through stage 4 chronic kidney disease, or unspecified chronic kidney disease; I50.32 Chronic diastolic (congestive) heart failure; I48.21 Permanent atrial fibrillation; J44.9 Chronic obstructive pulmonary disease, unspecified; N18.30 Chronic kidney disease, stage 3 unspecified; K21.9 Gastro-esophageal reflux disease without esophagitis; E66.9 Obesity, unspecified; E11.22 Type 2 diabetes mellitus with diabetic chronic kidney disease; M19.90 Unspecified osteoarthritis, unspecified site; E03.9 Hypothyroidism, unspecified; I70.1 Atherosclerosis of renal artery; I70.8 Atherosclerosis of other arteries; R07.89 Other chest pain; Z99.81 Dependence on supplemental oxygen; Z79.01 Long term (current) use of anticoagulants; Z86.16 Personal history of COVID-19; Z68.38 Body mass index [BMI] 38.0-38.9, adult; Z96.641 Presence of right artificial hip joint; Z79.891 Long term (current) use of opiate analgesic; Z79.82 Long term (current) use of aspirin; Z79.51 Long term (current) use of inhaled steroids; Z11.52 Encounter for screening for COVID-19; Z88.8 Allergy status to other drugs, medicaments and biological substances; Z79.890 Hormone replacement therapy
CPT/HCPCS: 0202U; 36415; 71045; 74022; 80048; 80053; 81001; 82330; 82803; 82947; 83605; 83735; 83880; 84100; 84443; 84484; 85025; 85610; 85730; 88307; 93005; 93010; 93306; 94002; 94640; 94660; 94664; 94762; 97110; 97110-CQ; 97162; 97165; 97530; 97535; A9270; C9113; J1100; J1650; J1815; J2250; J2371; J2405; J2543; J2704; J3010; J7050